=== PATIENT | female | born 1970 | race American Indian/Alaskan Native ===

== ENCOUNTER 2016-08-23 11:28 | Outpatient (CLI) | payer BC, OTHER | END 2016-08-23 11:29 | disposition home or self-care (01) | LOC: US 11:28 | PROVIDERS: ATTEND Internal Medicine Hematology & Oncology | DX: C50.912 Malignant neoplasm of unspecified site of left female breast (principal); N63 Unspecified lump in breast ==

== ENCOUNTER 2021-02-16 05:42 | Day surgery (SDC) | payer OTHER ==
[2021-02-16] MEDS ORDERED: ceFAZolin/Water 2 GM/20 ML 2 GM/20 ML SYRINGE IV NR (06:00)
[2021-02-16] MEDS ORDERED: LACTATED RINGERS 1,000 ML ONE (06:44)
[2021-02-16] MEDS ORDERED: LIDOCAINE PF 100 MG/5 ML (CARDIAC SYRINGE) IV ONE (07:18)
[2021-02-16] MEDS ORDERED: propofoL 200 MG/20 ML VIAL IV ONE ×2 (07:19→08:43)
--- NOTE | 2021-02-16 07:24 | Anesthesia Consultation ---
Anesthesia Consult and Med Hx Date of service: 02/16/21 - Airway Anesthetic Teeth Evaluation: Good ROM Head & Neck: Adequate Mental/Hyoid Distance: Adequate Mallampati Class: Class II Intubation Access Assessment: Good - Pulmonary Exam CTA: Yes - Cardiac Exam Cardiac Exam: RRR - Pre-Operative Health Status ASA Pre-Surgery Classification: ASA3 Proposed Anesthetic Plan: General - Pulmonary Hx Smoking: Yes (STOPPED X 3 YRS) SOB: Yes Hx Sleep Apnea: Yes (DX SLEEP APNEA , NO CPAP USE.) - Cardiovascular System Hx Hypertension: Yes (X 15 -20 YRS) - Central Nervous System Hx Psychiatric Problems: No - Gastrointestinal Hx Gastroesophageal Reflux Disease: Yes - Endocrine Hx Non-Insulin Dependent Diabetes: Yes - Hematic Hx Anemia: Yes - Other Systems Hx Obesity: Yes
--- NOTE | 2021-02-16 07:24 | Anesthesia Day of Surgery ---
Anesthesia Day of Surgery - Day of Surgery Patient Examined: Yes Patient H&P Reviewed: Yes Patient is NPO: Yes Beta Blockers: Yes
[2021-02-16 07:27] LABS: INR 0.89 (0.87-1.13); Partial Thromboplastin Time 28.6 Sec. (24.2-36.6)
[2021-02-16] MEDS ORDERED: fentaNYL 100 MCG/2 ML INJ ONE ×2 (07:35→08:43)
[2021-02-16] MEDS ORDERED: BUPIVACAINE/PF (0.25%) 2.5 MG/ML 30 ML VIAL INFILTRATI ONE (07:39)
[2021-02-16] MEDS ORDERED: SODIUM CHLORIDE 0.9% 1000 ML 1,000 ML ONE (07:49)
[2021-02-16] MEDS ORDERED: SODIUM CHLORIDE 0.9% 1000 ML 1,000 ML IV SCH (08:00)
[2021-02-16] MEDS ORDERED: MIDAZOLAM 2 MG/2 ML INJ IV NR (08:00)
[2021-02-16] MEDS ORDERED: BUPIVACAINE/PF (0.5%) 5 MG/1 ML 10 ML VIAL INFILTRATI ONE (08:41)
[2021-02-16] MEDS ORDERED: ONDANSETRON 4 MG/2 ML INJ ONE (09:19)
[2021-02-16] MEDS: HYDROmorphone 1 MG/1 ML INJ IV PRN ×2 (09:25→09:46)
--- NOTE | 2021-02-16 09:26 | Procedure Note ---
Date of procedure: 02/16/21 Pre-op diagnosis: Left carpal tunnel syndrome Post-op diagnosis: same Procedure: [Left] endoscopic carpal tunnel release Procedure The patient was brought to the OR placed in the OR table in supine position following induction and intubation anesthesia the patient's [left] upper extremity was prepped and draped in the usual sterile manner a timeout procedure was done to identify the patient and the correct operative site next the arm was exsanguinated followed by inflation of the pneumatic tourniquet to 250 mmHg a volar incision was made at the distal wrist crease this is taken down through skin and subcutaneous using loupe magnification the superficial flexor sheath was identified next the carpal canal was entered using dilators andthe arthroscope was inserted the patient was noted to have some tightness at the carpal canal and the transverse carpal transverse carpal ligament was identified with the arthroscope in line with the fourth metacarpal the knife blade assembly was elevated the ligament was released from distal to proximal care was taken to release the ligament as completely as possible a second look was done and it appeared that the ligament was completely released at this point The wound was irrigated and was closed in a standard routine fashion. Dressings were applied the patient tolerated the procedure there were no complications she was sent to postanesthesia recovery in stable condition Anesthesia: MAC Surgeon: MELYSSA SANCHEZ (Thien Choi, [facility] assist) Estimated blood loss: minimal Pathology: none Condition: stable Disposition: PACU
[2021-02-16] MEDS ORDERED: ONDANSETRON 4 MG/2 ML INJ IV PRN (09:30)
[2021-02-16] MEDS ORDERED: HYDROmorphone 1 MG/1 ML INJ IV PRN (09:30)
--- NOTE | 2021-02-16 10:51 | Post Anesthesia Evaluation ---
- Post Anesthesia Evaluation Patient Participated: Yes Airway Patent: Yes Stable Respiratory Function: Yes Nausea/Vomiting: No Temp > 96.8F: Yes Pain Manageable: Yes Adequeate Hydration: Yes Anesthesia Complications: No Block Receding Appropriately: Not Applicable Patient on Ventilator: No
[2021-02-16] MEDS ORDERED: HYDROcodone/ACETAMINOPHEN 5-325 MG TAB ONE ×2 (10:54→10:55)
[2021-02-16] MEDS ORDERED: HYDROcodone/ACETAMINOPHEN 5-325 MG TAB PO PRN (11:53)
[2021-02-16 15:12] VITALS: BP 132/90
== END 2021-02-16 10:58 | disposition home or self-care (01) ==
LOC: OR 05:42
PROVIDERS: ATTEND Orthopaedic Surgery
DX: G56.02 Carpal tunnel syndrome, left upper limb (principal); I10 Essential (primary) hypertension; E11.9 Type 2 diabetes mellitus without complications; K21.9 Gastro-esophageal reflux disease without esophagitis; G47.30 Sleep apnea, unspecified; E66.9 Obesity, unspecified; I48.91 Unspecified atrial fibrillation; E78.00 Pure hypercholesterolemia, unspecified; Z79.84 Long term (current) use of oral hypoglycemic drugs; Z79.899 Other long term (current) drug therapy; Z98.890 Other specified postprocedural states; Z87.891 Personal history of nicotine dependence
CPT/HCPCS: 29848; 36415; 82962; 85610; 85730; J0690; J1170; J2001; J2405; J2704; J3010; J7030; J7120